=== PATIENT | male | born 1955 ===

== ENCOUNTER 2022-04-27 14:21 | Outpatient (NON) | payer OTHER, MEDICARE, MEDICAID, SELFPAY | END 2022-04-27 14:22 | disposition home or self-care (01) | LOC: ANHLAB 14:21 | PROVIDERS: Referring Provider Nurse Practitioner; Visit Provider Nurse Practitioner | DX: C44.319 Basal cell carcinoma of skin of other parts of face (principal) | CPT/HCPCS: 88305; 88331 ==